=== PATIENT | female | born 1960 | race Caucasian/White ===

== ENCOUNTER 2018-06-03 07:29 | Day surgery (SDC) | payer OTHER ==
[2018-06-03] MEDS ORDERED: LACTATED RINGER'S 1,000 ML IV (09:30)
[2018-06-03] MEDS: HEPARIN 1000 UNITS/ML 10 ML INJ (10:21)
[2018-06-03 12:21] LABS: WHITE BLOOD COUNT 7.2 10^3/ul (4.8-10.8)
[2018-06-03 12:21] LABS: HEMATOCRIT 44.3 % (37.0-47.0); HEMOGLOBIN 14.6 g/dl (12.0-16.0); MEAN CORPUSCULAR VOLUME 91.2 fl (82.0-101.0); MEAN PLATELET VOLUME 10.3 fl (7.4-10.4); PLATELET COUNT 187 10^3/UL (140-415); RED BLOOD COUNT 4.86 10^6/ul (4.20-5.40); RED CELL DISTRIBUTION WIDTH 14.1 % (11.5-14.5)
[2018-06-03 12:23] LABS: INR 0.92; PROTIME 12.4 Sec (11.9-14.9)
[2018-06-03 12:24] LABS: PARTIAL THROMBOPLASTIN TIME 27.3 Sec (25.0-35.0)
[2018-06-03] MEDS ORDERED: OXYCODONE/ACETAMINOPHEN (5/325) TAB PO ×2 (12:30)
[2018-06-03] MEDS ORDERED: ONDANSETRON 4 MG INJ IV (12:30)
[2018-06-03] MEDS ORDERED: HYDROmorphONE 1 MG/5 ML IV SYRINGE IV ×3 (12:30)
[2018-06-03 12:33] LABS: ADD MAN DIFF? YES; POSITIVE DIFF @See below
[2018-06-03] MEDS: IBUPROFEN 800 MG TAB PO (12:51)
[2018-06-03 13:24] LABS: ALANINE AMINOTRANSFERASE 25 IU/L (13-69); ALBUMIN 3.8 g/dl (3.3-4.9); ALBUMIN/GLOBULIN RATIO 1.08; ALKALINE PHOSPHATASE 75 IU/L (42-121); ANION GAP 13 (8-16); ASPARTATE AMINO TRANSFERASE 22 IU/L (15-46); BILIRUBIN,INDIRECT 0.3 mg/dl (0-1.1); BILIRUBIN,TOTAL 0.3 mg/dl (0.2-1.3); BLOOD UREA NITROGEN 13 mg/dl (7-20); CARBON DIOXIDE 26 mmol/L (21-31); CHLORIDE 105 mmol/L (97-110); CREATININE 0.48 mg/dl (0.44-1.00); GLUCOSE 114 mg/dl (70-220); POTASSIUM 4.1 mmol/L (3.5-5.1); SODIUM 140 mmol/L (135-144); TOTAL PROTEIN 7.3 g/dl (6.1-8.1)
[2018-06-03 13:59] LABS: BAND NEUTROPHILS #M 0.2 10^3/ul (0.0-0.6); BAND NEUTROPHILS % (M) 4 % (0-4); BURR CELLS 1+ (0-0); EOSINOPHILS % (M) 3 % (0-7); GIANT THROMBO% (M) 3 % (0-0); LYMPHOCYTES #M 1.7 10^3/ul (0.8-2.9); LYMPHOCYTES % (M) 24 % (15-51); MONOCYTE #M 0.7 10^3/ul (0.3-0.9); MONOCYTES % (M) 10 % (0-11); MYELOCYTES % (M) 1 % (0-0); PLATELET ESTIMATE NORMAL; POIKILOCYTOSIS 1+ (0-0); REACTIVE LYMPHOCYTES #M 0.1 10^3/ul (0.0-0.0); REACTIVE LYMPHOCYTES% (M) 2 % (0-0); SEGMENTED NEUTROPHILS (M) % 56 % (39-77); SMUDGE%M 3 % (0-0)
[2018-06-04] MEDS ORDERED: FENTAnyl 50 MCG/ML VIAL ×2 (00:10)
[2018-06-04] MEDS ORDERED: ONDANSETRON 4 MG INJ (00:10)
[2018-06-04] MEDS ORDERED: METOPROLOL 5 MG INJ (00:10)
[2018-06-04] MEDS ORDERED: PROPOFOL 20 ML (00:10)
[2018-06-04] MEDS ORDERED: CEFAZOLIN 1 GM INJ (00:10)
[2018-06-04] MEDS ORDERED: METOCLOPRAMIDE 10 MG INJ (00:10)
[2018-06-04] MEDS ORDERED: MIDAZOLAM 1 MG/ML 2 ML INJ (00:10)
[2018-06-04] MEDS ORDERED: EPHEDrine SULFATE 50 MG/5 ML SYG (00:10)
== END 2018-06-03 14:30 | disposition home or self-care (01) ==
LOC: SDS 07:29
DX: I83.022 Varicose veins of left lower extremity with ulcer of calf (principal); L97.229 Non-pressure chronic ulcer of left calf with unspecified severity
CPT/HCPCS: 37765; 71045; 80053; 85025; 85610; 85730; 88304; 93005

== ENCOUNTER 2019-05-12 08:01 | Day surgery (SDC) | payer OTHER ==
[~2019-05-12 08:01] MED LIST: CEFAZOLIN 2 GM/50 ML (PMX) 50 ML IVPB; SOD CHLORIDE 0.9% 1,000 ML IV
[2019-05-12] MEDS ORDERED: LIDOCAINE 2% (SDV) 5 ML INJ (11:16)
[2019-05-12] MEDS ORDERED: ROCURONIUM 50 MG INJ (11:16)
[2019-05-12] MEDS ORDERED: SUCCINYLCHOLINE CHLORIDE 100 MG/5 ML SYG IV (11:16)
[2019-05-12] MEDS ORDERED: PROPOFOL 200 MG INJ (11:16)
[2019-05-12] MEDS ORDERED: EPHEDrine SULFATE 50 MG/5 ML SYG (11:16)
[2019-05-12] MEDS ORDERED: ROPIVACAINE 0.5 % 30 ML VIAL (11:17)
[2019-05-12] MEDS ORDERED: ONDANSETRON 4 MG INJ (11:17)
[2019-05-12] MEDS ORDERED: MIDAZOLAM 1 MG/ML 2 ML INJ (11:17)
[2019-05-12] MEDS ORDERED: ONDANSETRON 4 MG INJ IV (11:30)
[2019-05-12] MEDS ORDERED: OXYCODONE/ACETAMINOPHEN (5/325) TAB PO (11:30)
[2019-05-12] MEDS ORDERED: hydrALAzine 20 MG INJ IV (11:30)
[2019-05-12] MEDS ORDERED: DIPHENHYDRAMINE 50 MG INJ IV (11:30)
[2019-05-12] MEDS ORDERED: FENTAnyl 50 MCG/ML VIAL IV (11:30)
[2019-05-12] MEDS ORDERED: EPHEDrine 25 MG/5 ML SYG IV (11:30)
[2019-05-12] MEDS ORDERED: HYDROmorphONE 1 MG/5 ML IV SYRINGE IV (11:30)
[2019-05-12] MEDS ORDERED: MIDAZOLAM 1 MG/ML 2 ML INJ IV (11:30)
[2019-05-12] MEDS ORDERED: MEPERIDINE 25 MG INJ IV (11:30)
[2019-05-12] MEDS ORDERED: LABETALOL HCL 20MG INJ IV (11:30)
[2019-05-12] MEDS ORDERED: LABETALOL HCL 20MG INJ (11:56)
[2019-05-12] MEDS ORDERED: KETOROLAC 30 MG INJ (12:04)
[2019-05-12] MEDS ORDERED: SUGAMMADEX SODIUM 200 MG/2 ML VIAL IV (12:05)
[2019-05-12] MEDS ORDERED: GLYCOPYRROLATE 0.4 MG INJ (12:10)
[2019-05-12] MEDS: HYDROmorphONE 1 MG/5 ML IV SYRINGE IV ×3 (13:01→13:23)
[2019-05-12] MEDS: HYDROCODONE/APAP (5/325) TAB PO (14:06)
== END 2019-05-12 16:16 | disposition home or self-care (01) ==
LOC: SDS 08:01
DX: K80.10 Calculus of gallbladder with chronic cholecystitis without obstruction (principal); I10 Essential (primary) hypertension; E66.9 Obesity, unspecified
CPT/HCPCS: 47562; 88304